=== PATIENT | male | born 1975 | race American Indian/Alaskan Native ===

== ENCOUNTER 2021-11-29 14:14 | Emergency (ER) | payer OTHER ==
[2021-11-29] MEDS ORDERED: IBUPROFEN 800 MG TAB PO ONE (18:27)
[2021-11-29] MEDS ORDERED: TETANUS,DIPHTHERIA TOXOID ADULT 0.5 ML INJ IM ONE (18:27)
[2021-11-29] MEDS ORDERED: BACITRACIN ZINC OINT 28.4 GM TP PRN (18:27)
[2021-11-29] MEDS ORDERED: HYDROcodone/ACETAMINOPHEN 5-325 MG TAB PO ONE (18:27)
--- NOTE | 2021-11-29 18:33 | Emergency Department Report ---
- General Chief complaint: Wound/Laceration Stated complaint: RT ARM LACERATION Time Seen by Provider: 11/29/21 16:41 Source: patient Mode of arrival: Ambulatory Limitations: No Limitations - History of Present Illness Initial comments: 46-year-old male presents with laceration to his right hand. Patient reports he was at work this morning when he accidentally cut himself with an equipment, states the bleeding was so severe and profuse that he went to the urgent care and was told "it might be an arterial bleed and come to the emergency department". Upon examination the bleeding has resolved. He denies weakness, he denies use of blood thinners, no paresthesia paralysis of the extremity, no headache dizziness vision changes, no chest pain shortness of breath - Related Data Previous Rx's Medication Instructions Recorded Last Taken Type Ibuprofen [Motrin 800 MG tab] 800 mg PO TID PRN #20 tablet 11/29/21 Unknown Rx Allergies Allergy/AdvReac Type Severity Reaction Status Date / Time No Known Allergies Allergy Unverified 11/29/21 15:42 Abscess Boil HPI - HPI Chief Complaint: Wound/Laceration Stated Complaint: RT ARM LACERATION Time Seen by Provider: 11/29/21 16:41 Home Medications: Previous Rx's Medication Instructions Recorded Last Taken Type Ibuprofen [Motrin 800 MG tab] 800 mg PO TID PRN #20 tablet 11/29/21 Unknown Rx Allergies/Adverse Reactions: Allergies Allergy/AdvReac Type Severity Reaction Status Date / Time No Known Allergies Allergy Unverified 11/29/21 15:42 ED Review of Systems ROS: Stated complaint: RT ARM LACERATION Other details as noted in HPI Constitutional: see HPI Respiratory: denies: cough, shortness of breath Cardiovascular: denies: chest pain, palpitations Endocrine: denies: excessive sweating, intolerance to cold, intolerance to heat Gastrointestinal: denies: abdominal pain, nausea Genitourinary: denies: frequency Musculoskeletal: denies: back pain, joint swelling, arthralgia, myalgia Skin: as per HPI Neurological: denies: headache, weakness, numbness Hematological/Lymphatic: denies: easy bleeding, easy bruising ED Past Medical Hx - Past Medical History Previous Medical History?: No - Surgical History Past Surgical History?: No - Social History Smoking Status: Never Smoker Substance Use Type: None - Medications Home Medications: Home Medications Medication Instructions Recorded Confirmed Last Taken Type Ibuprofen [Motrin 800 MG tab] 800 mg PO TID PRN #20 tablet 11/29/21 Unknown Rx ED Physical Exam - General Limitations: No Limitations General appearance: alert, in no apparent distress - Head Head exam: Present: atraumatic - Eye Eye exam: Present: normal appearance - ENT ENT exam: Present: normal exam, normal orophraynx - Neck Neck exam: Present: normal inspection. Absent: tenderness - Respiratory Respiratory exam: Present: normal lung sounds bilaterally - Cardiovascular Cardiovascular Exam: Present: regular rate, normal rhythm - GI/Abdominal GI/Abdominal exam: Present: soft - Extremities Exam Extremities exam: Present: normal inspection, full ROM - Back Exam Back exam: Present: normal inspection, full ROM - Neurological Exam Neurological exam: Present: alert, oriented X3 - Psychiatric Psychiatric exam: Present: normal affect, normal mood - Skin Skin exam: Present: warm, dry, intact - Expanded Skin Exam Expanded Type of lesion: Present: laceration 1 - 1 cm linear laceration and appears to have resolved bleeding. No visible bone or tissue. - Other Other exam information: Intact pulses sensation cap refill, full range of motion. No bony tenderness. No obvious swelling or deformity of the extremity ED Course Vital Signs 11/29/21 11/29/21 11/29/21 15:44 16:58 19:06 Temperature 98.2 F 98.4 F 98.4 F Pulse Rate 92 H 76 76 Respiratory 18 18 20 Rate Blood Pressure 156/83 141/78 Blood Pressure 141/78 128/72 [Left] O2 Sat by Pulse 98 99 97 Oximetry ED Medical Decision Making - Medical Decision Making Wound care performed, with area irrigated with saline, Betadine, dressed with antibiotic ointment Telfa, patient tolerated procedure well, no indication for laceration repair at this time. Patient is neurovascular neuromuscularly intact, no sign of an arterial bleed at this time. Patient has not had any active bleeding throughout his ED course. Discharge home w wound care instructions, pain management, follow-up with return precautions Patient remained stable nontoxic-appearing, afebrile, ambulating steadily without assistance. Gone over ED findings with patient as well as plan for follow-up. Also discussed return precautions with patient, all questions and concerns addressed. Patient is stable to be discharged follow-up outpatient. Audio voice dictation device used, hence the chart might contain some dictation errors, mispronunciations, wrong spelling and wrong verbiage. Critical care attestation.: If time is entered above; I have spent that time in minutes in the direct care of this critically ill patient, excluding procedure time. ED Disposition Clinical Impression: Laceration Disposition: 01 HOME / SELF CARE / HOMELESS Is pt being admited?: No Does the pt Need Aspirin: No Condition: Stable Instructions: Laceration Care, Adult Prescriptions: Ibuprofen [Motrin 800 MG tab] 800 mg PO TID PRN #20 tablet PRN Reason: Pain , Severe (7-10) Referrals: PRIMARY CARE,MD [Primary Care Provider] - 3-5 Days Forms: Work/School Release Form(ED)
[2021-11-29 19:07] VITALS: BP 128/72
== END 2021-11-29 19:06 | disposition home or self-care (01) ==
LOC: ED 14:14
DX: S61.411A Laceration without foreign body of right hand, initial encounter (principal); X58.XXXA Exposure to other specified factors, initial encounter; Y93.89 Activity, other specified; Y92.89 Other specified places as the place of occurrence of the external cause; Y99.8 Other external cause status
CPT/HCPCS: 90471; 90714; 96372; 99282